=== PATIENT | male | born 1945 | race Caucasian/White ===

== ENCOUNTER 2017-10-24 14:10 | Outpatient (POV) | END 2017-10-24 17:00 | LOC: OUTPT 14:10 | PROVIDERS: ATTEND Otolaryngology | DX: H91.90 Unspecified hearing loss, unspecified ear (principal); H93.13 Tinnitus, bilateral ==

== ENCOUNTER 2018-12-12 15:31 | Outpatient (CLI) ==
--- NOTE | 2018-12-12 16:42 | DI ---
EXAM: Two views of the chest. History: Cough. Findings: Heart size is normal. No focal consolidation. No appreciable pleural fluid and no pneumo thorax. No acute osseous abnormalities. Impression: No acute cardiopulmonary process
== END 2018-12-12 15:32 | disposition home or self-care (01) ==
LOC: RAD 15:31
PROVIDERS: ATTEND Family Medicine
DX: R05 Cough (principal); R06.2 Wheezing